=== PATIENT | male | born 1970 | race Caucasian/White ===

== ENCOUNTER 2019-08-07 16:52 | Emergency (ER) | payer MEDICAID ==
[~2019-08-07] VITALS: Ht 172.7 cm; Wt 104.3 kg
[~2019-08-07 16:52] MED LIST: GLIP10TA3 PO; LEVEMIR SUBQ; LIP80 PO; LOSA25TA32 PO; METF1000 PO
[2019-08-07 16:58] VITALS: BP 162/84
--- NOTE | 2019-08-07 17:28 | NUR ---
Dr. Guerrero at bedside.
--- NOTE | 2019-08-07 17:33 | NUR ---
49 yo male pt presents to ER complaining of right knee pain. Pt states he hit right knee against metal BBQ 3 weeks ago. Went to hospital Thursday, no medication given. seen at clinic, prescribed ABX. Clindamycin 300 mg, 1 capsule QID. has not completed course of ABX yet. Pain level 9/10. Erythema, bruising, swelling noted to right knee. Allergies: none Medical Hx: DM, HDL
[2019-08-07] MEDS ORDERED: KETOROLAC 60 MG/2 ML VIAL IM ONE (17:35)
--- NOTE | 2019-08-07 17:45 | NUR ---
Lab at bedside
--- NOTE | 2019-08-07 18:05 | NUR ---
Xray at bedside
[2019-08-07 18:07] LABS: BASOPHILS # (AUTO) 0.1 K/uL (0.00-0.22); BASOPHILS % (AUTO) 0.9 % (0.0-2.0); EOSINOPHILS # (AUTO) 0.1 K/uL (0-0.4); EOSINOPHILS % (AUTO) 1.4 % (0.0-4.0); HEMATOCRIT 44.9 % (36-52); HEMOGLOBIN 15.9 g/dL (12.0-18.0); LYMPHOCYTES # (AUTO) 1.6 K/uL (2.0-11.5); LYMPHOCYTES % (AUTO) 28.5 % (20.5-51.1); MEAN CORPUSCULAR HEMOGLOBIN 30 pg (27-31); MEAN CORPUSCULAR HGB CONC 35 g/dL (33-37); MEAN CORPUSCULAR VOLUME 83.2 fL (80-94); MONOCYTES # (AUTO) 0.4 K/uL (0.8-1.0); MONOCYTES % (AUTO) 6.8 % (1.7-9.3); NEUTROPHILS # (AUTO) 3.5 K/uL (1.8-7.7); NEUTROPHILS % (AUTO) 62.4 % (42.2-75.2); PLATELET COUNT (AUTO) 178 K/uL (140-450); RED CELL DISTRIBUTION WIDTH 13.2 % (11.6-13.7); WHITE BLOOD COUNT (AUTO) 5.7 K/uL (4.8-10.8)
--- NOTE | 2019-08-07 18:29 | NUR ---
Ultrasound finished at bedside.
--- NOTE | 2019-08-07 18:29 | NUR ---
Pt states pain decrease to level /
[2019-08-07] MEDS ORDERED: CLINDAMYCIN 600 MG in DEXTROSE 5% 50 ML IV ONE (18:30)
[2019-08-07] MEDS ORDERED: CLINDAMYCIN 600 MG/4 ML VIAL ONE (18:39)
[2019-08-07 18:57] LABS: CARBON DIOXIDE 27.3 mmol/L (21-32); CREATININE 1.2 mg/dL (0.6-1.3); POTASSIUM 4.3 mmol/L (3.5-5.1)
--- NOTE | 2019-08-07 19:12 | NUR ---
Transfer of care and report given to STACEY Conti
[2019-08-07] MEDS ORDERED: HYDROcodone/APAP 5/325 MG 1 TAB TAB PO ONE (19:45)
--- NOTE | 2019-08-07 19:52 | NUR ---
PT DENIES ANY PAIN AT THIS TIME. DX - CELLULITIS. ACI WITH RX GIVEN TO FORTUNATO PT. 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 PT DISCHARGED HOME TO FOLLOW UP WITH PMD
[2019-08-07 19:54] VITALS: BP 141/87
--- NOTE | 2019-08-07 20:02 | NUR ---
LABS AND DIAGNOSTIC RESULTS HANDED TO DAUGHTER UPON HER REQUEST
== END 2019-08-07 19:52 | disposition home or self-care (01) ==
LOC: MED 16:52
DX: L03.115 Cellulitis of right lower limb (principal); R60.0 Localized edema; E11.9 Type 2 diabetes mellitus without complications; I10 Essential (primary) hypertension; Z79.899 Other long term (current) drug therapy; Z79.84 Long term (current) use of oral hypoglycemic drugs
CPT/HCPCS: 36415; 73562; 80048; 81002; 82948; 85025; 85651; 86140; 87040; 93971; 96365; 96372; 99285; J1885; J3490; Q0092